=== PATIENT | female | born 1995 | race Caucasian/White ===

== ENCOUNTER 2021-05-25 13:35 | Emergency (ER) | payer MEDICAID, SELFPAY ==
[2021-05-25 15:14] VITALS: BP 155/84; PULSE 114; RESP 18; TEMP 39.1; O2SAT 98; BMI 31.8
[2021-05-25] MEDS: Acetaminophen 325 MG TABLET 650 MG PO (15:20)
[2021-05-25 15:54] LABS: COVID-19 Test Positive (Negative); IDNOW Serial# 9DD0AD1C; Strep A Nucleic Acid Negative (Negative)
[2021-05-25 16:58] VITALS: PULSE 108; RESP 16; TEMP 37.6; O2SAT 96
--- NOTE | 2021-05-25 17:24 | ED.URI ---
HPI - URI/Sore Throat General Chief Complaint: Upper Respiratory Symptoms Stated Complaint: sore throat Time Seen by Provider: 05/25/21 17:24 History of Present Illness HPI Narrative: Patient complains of sore throat runny nose body aches and fever for 3 days Related Data Allergies Allergy/AdvReac Type Severity Reaction Status Date / Time No Known Allergies Allergy Verified 05/25/21 15:13 [No Known Allergies*] Review of Systems Review of Systems: Positive for runny nose and sore throat Negatives no fever no chills no dizziness or weakness no headache no neck pain no chest pain no stiff neck no shortness of breath no abdominal pain no nausea vomiting or diarrhea Yes all other systems are reviewed and are negative [facility] [place] Past Medical History Source: nursing notes reviewed Social History Social History Advance Directives: No Advance Directives Information Provided: No Physical Exam Vital Signs: Vital Signs: Last Vital Signs Temp 99.7 F 05/25/21 16:58 Pulse 108 H 05/25/21 16:58 Resp 16 05/25/21 16:58 BP 155/84 H 05/25/21 15:14 Pulse Ox 96 05/25/21 16:58 BMI result Body Mass Index 31.8 General appearance is no acute distress Eyes no redness or discharge The pharynx well-hydrated, no redness swelling or exudate mucous membranes moist voice normal Neck is supple Respiratory no distress Chest clear to auscultation bilateral Heart no murmur Extremities for age motion x4 Course Course Course Narrative: Well-appearing patient negative for strep pharyngitis with clinically no sign of strep pharyngitis but positive for COVID is discharged with quarantine warnings MDM - URI/Sore Throat Lab Data Labs: Lab Results 05/25/21 05/25/21 Range/Units 15:31 15:31 COVID-19 ([facility]) Positive A (Negative) COVID-19 Clin Com See Note S. pyogenes GrpA ESTELLA Negative (Negative) Discharge Plan Discharge Clinical Impression: COVID-19 Patient Disposition: Home, Self-Care Additional Instructions: Your COVID test was positive Strep throat test was negative Physical exam was normal and there was no sign of any dangerous condition We gave 1 dose of a steroid which often relieves inflammation in the throat makes you feel better Return to the ER any time for difficulty breathing any worse condition or any concerns Wear mask when around other people and be aware your very contagious so quarantine for 10 days Stand Alone Forms: Work/School Release Interventions: ED Discharge Assessment Last Done: 05/25/21 17:35 Discharge Date/Time: 05/25/21 17:36
[2021-05-25] MEDS: dexAMETHasone 2 MG TABLET 10 MG PO (17:31)
== END 2021-05-25 17:36 | disposition home or self-care (01) ==
PROVIDERS: Emergency Provider Internal Medicine
DX: U07.1 COVID-19 (principal); J02.9 Acute pharyngitis, unspecified
CPT/HCPCS: 36415; 87635; 87651; 99283; J8540

== ENCOUNTER 2022-12-26 15:52 | Outpatient (REF) | payer MEDICAID, SELFPAY ==
[2022-12-26 17:41] LABS: Cholesterol 203 mg/dL; HDL Cholesterol 39 mg/dL; LDL Cholesterol Calculated 128 mg/dl; Triglycerides 184 mg/dL
[2022-12-26 17:56] LABS: TSH reflex Free T4 0.94 uIU/mL (0.32-4.0)
== END 2022-12-26 15:53 | disposition home or self-care (01) ==
LOC: HO.HHCL 15:52
PROVIDERS: Visit Provider Registered Nurse
DX: E55.9 Vitamin D deficiency, unspecified (principal); E66.09 Other obesity due to excess calories; Z68.34 Body mass index [BMI] 34.0-34.9, adult
CPT/HCPCS: 36415; 80061; 82306; 84443

== ENCOUNTER 2023-01-14 09:36 | Outpatient (REF) | payer MEDICAID, SELFPAY ==
--- NOTE | ~2023-01-14 | US_ITS ---
EXAMINATION: US ABDOMEN COMPLETE CLINICAL INFORMATION: Abdominal pain. COMPARISON: CT abdomen and pelvis 02/07/2015. TECHNIQUE: Real-time imaging of the abdominal viscera. FINDINGS: PANCREAS: Normal. The visualized pancreatic head and body are normal in appearance. The remainder of the pancreas is obscured from visualization by the overlying bowel gas. ABDOMINAL AORTA: The proximal, mid, and distal segments are normal in caliber. INFERIOR VENA CAVA: Visualized portions are normal. LIVER: The liver is normal in size. The liver contour is normal. There is diffuse increased liver parenchymal echogenicity, with pericholecystic sparing. No focal hepatic lesion. There is no intrahepatic biliary duct dilatation seen. GALLBLADDER: Normal. The gallbladder is physiologically distended without evidence of stones, sludge, polyps, wall thickening or pericholecystic fluid. COMMON BILE DUCT: Normal in caliber measuring 0.4 cm in diameter. RIGHT KIDNEY: Normal. No hydronephrosis. No renal calculi or focal parenchymal lesions. The kidney measures 9.8 cm in maximum dimension. LEFT KIDNEY: Normal. No hydronephrosis. No renal calculi or focal parenchymal lesions. The kidney measures 10.0 cm in maximum dimension. SPLEEN: Normal. The spleen measures 7.9 cm in maximum dimension. FREE FLUID: None. US/US abdomen complete IMPRESSION: 1. There is generalized increase in hepatic echotexture, consistent with fatty infiltration or hepatocellular disease. Please correlate clinically. Characteristic pericholecystic sparing favors fatty infiltration. No focal hepatic mass or intrahepatic biliary dilatation is seen. 2. Technically limited ultrasound examination of the pancreas.
== END 2023-01-14 09:37 | disposition home or self-care (01) ==
LOC: HO.US 09:36
PROVIDERS: PCP Registered Nurse; Visit Provider Registered Nurse
DX: R10.84 Generalized abdominal pain (principal)
CPT/HCPCS: 76700